=== PATIENT | female | born 1960 | race Asian ===

== ENCOUNTER 2020-07-21 09:00 | Outpatient (CLI) | payer OTHER | END 2020-07-21 23:59 | disposition home or self-care (01) | LOC: LAB 09:00 | PROVIDERS: ATTEND Specialist | DX: Z01.812 Encounter for preprocedural laboratory examination (principal) | CPT/HCPCS: C9803; U0003 ==

== ENCOUNTER 2020-07-27 06:50 | Day surgery (SDC) | payer OTHER ==
[2020-07-27] MEDS ORDERED: ANESTHESIA TRAY IN PYXIS 1 EA TRAY MC ONE (09:12)
[2020-07-27] MEDS ORDERED: EPINEPHRINE (1:1000) 1 MG/ML AMPUL ONE (09:25)
[2020-07-27] MEDS ORDERED: methylPREDNISolone ACETATE 80 MG/ML VIAL ONE (09:25)
[2020-07-27] MEDS ORDERED: BUPIVACAINE 0.25% 75 MG/30 ML VIAL ONE (09:25)
== END 2020-07-27 12:40 | disposition home or self-care (01) ==
LOC: DS 06:50
PROVIDERS: ATTEND Specialist
DX: M75.41 Impingement syndrome of right shoulder (principal); M65.811 Other synovitis and tenosynovitis, right shoulder; I10 Essential (primary) hypertension; E11.9 Type 2 diabetes mellitus without complications
CPT/HCPCS: 29824; 29826; 29827; 36415; 82962; 86850; A4217; A4565; C1713; J0171; J0690; J1040; J1100; J2405; J2704; J3490